=== PATIENT | female | born 2005 | race Caucasian/White ===

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

== ENCOUNTER 2025-01-06 12:53 | Emergency (ER) | payer OTHER, SELFPAY ==
[2025-01-06] MEDS ORDERED: ACETAMINOPHEN 500 MG TAB ONE (13:14)
[2025-01-06 13:49] LABS: Influenza A Ag Negative; Influenza B Ag Negative; SARS-CoV-2 Antigen Rapid Res Negative (Negative)
--- NOTE | 2025-01-06 14:23 | EDPHYS ---
Physician Documentation [facility] Name: Kika Castañeda Age: 19 yrs Sex: Female : 2005 Arrival Date: 01/06/2025 Time: 12:53 Bed IW1 Private MD: ED Physician Aniket Zamora HPI: 01/06 14:26 This 19 yrs old Female presents to ER via Ambulatory with complaints of Ear Pain, ms3 Headache. 14:26 19-year-old female with past medical history of depression, DVT, necrotizing ms3 pancreatitis presents to the emergency department for bilateral ear pain and headache that has been ongoing for 2 days. Patient endorses cough, nasal congestion. She denies contact with sick contacts.. Historical: - Allergies: 13:13 No Known Allergies; cm10 - PMHx: 13:13 depressive disorder; Hx of DVT; necrotizing pancreatitis; cm10 - PSHx: 13:13 Biliary stents; Cholecystectomy; neck; tracheotomy; cm10 - Immunization history:: Adult Immunizations up to date. - Infectious Disease History:: Denies. - Social history:: Smoking status: Patient denies any tobacco usage or history of. ROS: 14:26 Constitutional: Negative for fever, and chills. Cardiovascular: Negative for chest ms3 pain, and palpitations. Respiratory: Negative for shortness of breath, cough, wheezing, and pleuritic chest pain, Abdomen/GI: Negative for abdominal pain, nausea, vomiting, diarrhea, and constipation, 14:26 ENT: Positive for ear pain, nasal discharge, rhinorrhea, Exam: 14:26 Constitutional: This is a well developed, well nourished patient who is awake, alert, ms3 and in no acute distress. Cardiovascular: Regular rate and rhythm with a normal S1 and S2. No gallops, murmurs, or rubs. Normal PMI, no JVD. No pulse deficits. Respiratory: Lungs have equal breath sounds bilaterally, clear to auscultation and percussion. No rales, rhonchi or wheezes noted. No increased work of breathing, no retractions or nasal flaring. Abdomen/GI: Soft, non-tender, with normal bowel sounds. No distension or tympany. No guarding or rebound. No evidence of tenderness throughout. 14:26 ENT: External ear(s): are unremarkable, Ear canal(s): cerumen impaction, that is moderate, bilaterally, Vital Signs: 13:13 BP 128 / 94; Pulse 98; Resp 15; Temp 98; Pulse Ox 96% ; Weight 95.25 kg; Height 5 ft. 4 cm10 in. ; Pain 8/10; 13:13 Body Mass Index 36.05 (95.25 kg, 162.56 cm) - Percentile 97.4 % cm10 13:13 Pain Scale: Adult cm10 MDM: 13:22 Medical Screening Exam initiated ms3 14:26 Differential diagnosis: otitis media, cerumen impaction, Influenza vs COVID. Data ms3 reviewed: vital signs, nurses notes, and as a result, I will discharge patient. I considered the following discharge prescriptions or medication management in the emergency department Medications were administered in the Emergency Department. See MAR. Counseling: I had a detailed discussion with the patient and/or guardian regarding the historical points, exam findings, and any diagnostic results supporting the discharge/admit diagnosis, lab results, the need for outpatient follow up, to return to the emergency department if symptoms worsen or persist or if there are any questions or concerns that arise at home. Special discussion: I discussed with the patient/guardian in detail that at this point there is no indication for admission to the hospital. It is understood, however, that if the symptoms persist or worsen the patient needs to return immediately for re-evaluation. ED course: Discussed negative flu and COVID with patient. Patient to follow-up with primary care physician in 2 to 3 days. Discussed Debrox with patient. All questions were answered. Return precautions discussed include worsening symptoms, or any other concerns.. 01/06 13:18 Order name: COVID-19 Ag + Flu A+B Ag; Complete Time: 14:22 cm10 Administered Medications: 13:22 Drug: Acetaminophen PO 1000 mg PO once Route: PO; cm10 13:30 Follow up: Response: No adverse reaction iw 13:22 Not Given (Duplicate Order): [id number] mg PO once cm10 Disposition Summary: 01/06/25 14:23 Discharge Ordered Notes: Location: Home ms3 Condition: Stable ms3 Diagnosis - Acute upper respiratory infection, unspecified ms3 Followup: ms3 - With: Tommie Jones, DO - When: 2 - 3 days - Reason: Recheck today's complaints Discharge Instructions: - Discharge Summary Sheet ms3 - Upper Respiratory Infection, Adult ms3 Forms: - Work release form iw - Medication Reconciliation Form ms3 - Antibiotic Education ms3 - Prescription Opioid Use ms3 - Patient Portal Instructions ms3 - Leadership Thank You Letter ms3 Prescriptions: - Claritin 10 mg Oral Tablet - take 1 tablet ORAL route once daily As needed; 30 tablet; Refills: 0, Product ms3 Selection Permitted Signatures: Dispatcher [employer] EDAniket Artis, DO ms3 Roxana Guidry RN RN cm10 Tiana Almodovar RN iw
--- NOTE | 2025-01-06 14:23 | ER ---
Nurse's Notes [facility] Name: Kika Castañeda Age: 19 yrs Sex: Female : 2005 Arrival Date: 01/06/2025 Time: 12:53 Bed IW1 Private MD: Diagnosis: Acute upper respiratory infection, unspecified Presentation: 01/06 13:13 Chief complaint: Patient states: Bilateral ear pain and headache onset 2 days ago. cm10 Coronavirus screen: Client denies travel out of the [place] in the last 14 days. Ebola Screen: Patient denies travel to an Ebola-affected area in the 21 days before illness onset. Initial Sepsis Screen: Does the patient meet any 2 criteria? HR > 90 bpm. Does the patient have a suspected source of infection? No. Patient's initial sepsis screen is negative. Risk Assessment: Do you want to hurt yourself or someone else? Patient reports no desire to harm self or others. Onset of symptoms was January 04, 2025. 13:13 Method Of Arrival: Ambulatory cm10 13:13 Acuity: ARA 4 cm10 Triage Assessment: 13:14 General: Appears in no apparent distress. comfortable, Behavior is calm, cooperative. cm10 Pain: Complains of pain in head, right ear and left ear. EENT: Reports pain in right ear and left ear. Neuro: No deficits noted. Level of Consciousness is awake, alert, obeys commands, Oriented to person, place, time, situation, Appropriate for age. Respiratory: No deficits noted. Airway is patent Respiratory effort is even, unlabored, Respiratory pattern is regular, symmetrical. Historical: - Allergies: 13:13 No Known Allergies; cm10 - PMHx: 13:13 depressive disorder; Hx of DVT; necrotizing pancreatitis; cm10 - PSHx: 13:13 Biliary stents; Cholecystectomy; neck; tracheotomy; cm10 - Immunization history:: Adult Immunizations up to date. - Infectious Disease History:: Denies. - Social history:: Smoking status: Patient denies any tobacco usage or history of. Vital Signs: 13:13 BP 128 / 94; Pulse 98; Resp 15; Temp 98; Pulse Ox 96% ; Weight 95.25 kg; Height 5 ft. 4 cm10 in. ; Pain 8/10; 13:13 Body Mass Index 36.05 (95.25 kg, 162.56 cm) - Percentile 97.4 % cm10 13:13 Pain Scale: Adult cm10 ED Course: 12:58 Patient arrived in ED. al6 13:03 Aniket Zamora DO is Attending Physician. ms3 13:14 Triage completed. cm10 13:15 Arm band placed on right wrist. Patient placed in an exam room, on a stretcher. cm10 13:22 COVID-19 Ag + Flu A+B Ag Sent. cm10 13:22 COVID swab sent to lab. cm10 14:22 Tommie Jones DO is Referral Physician. ms3 14:47 Tiana Almodovar, RN is Primary Nurse. iw Administered Medications: 13:22 Drug: Acetaminophen PO 1000 mg PO once Route: PO; cm10 13:30 Follow up: Response: No adverse reaction iw 13:22 Not Given (Duplicate Order): [id number] mg PO once cm10 Outcome: 14:23 Discharge ordered by MD. ms3 14:47 Patient left the ED. iw Signatures: Tiana Almodovar, RN RN iw Aniket Zamora DO DO ms3 Roxana Guidry RN RN cm10 Debra Marino al6
[2025-01-06 21:26] VITALS: BP 128/94; TEMP 98; O2SAT 96
== END 2025-01-06 14:47 | disposition home or self-care (01) ==
LOC: ER 12:53
DX: J06.9 Acute upper respiratory infection, unspecified (principal); Z11.52 Encounter for screening for COVID-19
CPT/HCPCS: 36415; 87428

== ENCOUNTER 2025-01-14 01:22 | Emergency (ER) | payer SELFPAY ==
--- NOTE | 2025-01-14 02:29 | EDPHYS ---
Physician Documentation [facility] Name: Kika Castañeda Age: 19 yrs Sex: Female : 2005 Arrival Date: 01/14/2025 Time: 01:22 Bed DX4 Private MD: ED Physician lAlie Almodovar HPI: 01/14 01:48 This 19 yrs old Female presents to ER via Unassigned with complaints of sw6 Cough, Congestion, Ear Pain. 01:48 The patient or guardian reports cough, hoarse voice, Sore throat. Onset: The sw6 symptoms/episode began/occurred 2 day(s) ago. Severity of symptoms: At their worst the symptoms were moderate, in the emergency department the symptoms are unchanged. Modifying factors: The symptoms are alleviated by nothing, the symptoms are aggravated by talking. Associated signs and symptoms: Pertinent negatives: ear ache, fever, rhinorrhea. The patient presents from home for evaluation for sore throat as well as a dry cough for the past 2 days. No fevers. 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 She used some Tylenol for her pain yesterday and reports it did not help. No medication taken today. She does not smoke. No history of asthma. She has had a previous tracheostomy due to complication from pancreatitis in the past. No ear pain. Here for evaluation.. Historical: - Allergies: 01:49 No Known Allergies; kl - PMHx: 01:49 depressive disorder; Hx of DVT; necrotizing pancreatitis; kl - PSHx: 01:49 Biliary stents; neck; tracheotomy; Cholecystectomy; kl - Immunization history:: Adult Immunizations not immunized. - Infectious Disease History:: Denies. - Social history:: Smoking status: Patient denies any tobacco usage or history of. ROS: 01:48 Constitutional: Negative for fever, chills, and weight loss, Cardiovascular: Negative sw6 for chest pain, palpitations, and edema, Respiratory: Negative for shortness of breath, cough, wheezing, and pleuritic chest pain, Abdomen/GI: Negative for abdominal pain, nausea, vomiting, diarrhea, and constipation, 01:48 ENT: Positive for sore throat, Negative for ear pain, nasal discharge, 01:48 All other systems are negative, Exam: 01:48 Constitutional: This is a well developed, well nourished patient who is awake, alert, sw6 and in no acute distress. Cardiovascular: Regular rate and rhythm with a normal S1 and S2. No gallops, murmurs, or rubs. Normal PMI, no JVD. No pulse deficits. Respiratory: Lungs have equal breath sounds bilaterally, clear to auscultation and percussion. No rales, rhonchi or wheezes noted. No increased work of breathing, no retractions or nasal flaring. Abdomen/GI: Soft, non-tender, with normal bowel sounds. No distension or tympany. No guarding or rebound. No evidence of tenderness throughout. Skin: Warm, dry with normal turgor. Normal color with no rashes, no lesions, and no evidence of cellulitis. Psych: Awake, alert, with orientation to person, place and time. Behavior, mood, and affect are within normal limits. 01:48 ENT: Posterior pharynx: Airway: normal, Uvula: normal, midline, swelling, erythema, exudate, is not appreciated, peritonsillar mass, is not appreciated, pooling of secretions, is not appreciated, Voice: is normal, Vital Signs: 01:46 BP 139 / 86; Pulse 87; Resp 16; Temp 98.3(O); Pulse Ox 97% on R/A; Weight 99.79 kg (R); kl Height 5 ft. 4 in. ; Pain 8/10; 01:46 Body Mass Index 37.76 (99.79 kg, 162.56 cm) - Percentile 97.9 % kl 01:46 Pain Scale: Adult kl MDM: 01:28 Medical Screening Exam initiated 01:48 Differential Diagnosis: Upper Respiratory Infection Pharyngitis Viral Syndrome Other sw6 Strep throat. Data reviewed: vital signs, nurses notes. 02:28 Data reviewed: lab test result(s). ED course: The patient is doing well here. Her rapid sw6 strep test is negative. Recommend she is [id number] Cepacol lozenges as needed for her throat pain. She remained stable here in the ER and is okay for discharge home.. 01/14 01:48 Order name: Throat Culture 6 01/14 02:03 Order name: Group A Streptococcus Rapid; Complete Time: :27 6 01/14 02:27 Interpretation: Within normal limits. sw6 Administered Medications: No medications were administered Disposition Summary: 01/14/25 02:28 Discharge Ordered Notes: Location: Home sw6 Problem: new sw6 Symptoms: are unchanged sw6 Condition: Stable sw6 Diagnosis - Acute pharyngitis, unspecified sw6 Discharge Instructions: - Discharge Summary Sheet sw6 - Strep Throat, Adult sw6 - Pharyngitis, [id number] sw6 Forms: - Medication Reconciliation Form sw6 - Antibiotic Education sw6 - Prescription Opioid Use sw6 - Patient Portal Instructions 6 - Leadership Thank You Letter 6 Signatures: Dispatcher [employer] Isaura Sauceda, TRAE RN Allie Agosto MD MD sw6
--- NOTE | 2025-01-14 02:29 | ER ---
Nurse's Notes [facility] Name: Kika Castañeda Age: 19 yrs Sex: Female : 2005 Arrival Date: 01/14/2025 Time: 01:22 Bed DX4 Private MD: Diagnosis: Acute pharyngitis, unspecified Presentation: 01/14 01:46 Chief complaint: Patient states: sore throat ear pain since last week cough and kl congestion. Coronavirus screen: Vaccine status: Patient reports being unvaccinated. Ebola Screen: Patient negative for fever greater than or equal to 101.5 degrees Fahrenheit, and additional compatible Ebola Virus Disease symptoms. Initial Sepsis Screen: Does the patient meet any 2 criteria? No. Patient's initial sepsis screen is negative. Does the patient have a suspected source of infection?. Risk Assessment: Do you want to hurt yourself or someone else? Patient reports no desire to harm self or others. 01:46 Method Of Arrival: Ambulatory kl 01:46 Acuity: RAA 4 kl Triage Assessment: 01:49 General: Appears uncomfortable, Behavior is calm, cooperative. Pain: Complains of pain kl in throat and bilateral ears. Respiratory: No deficits noted. Breath sounds are clear bilaterally. Historical: - Allergies: 01:49 No Known Allergies; kl - PMHx: 01:49 depressive disorder; Hx of DVT; necrotizing pancreatitis; kl - PSHx: 01:49 Biliary stents; neck; tracheotomy; Cholecystectomy; kl - Immunization history:: Adult Immunizations not immunized. - Infectious Disease History:: Denies. - Social history:: Smoking status: Patient denies any tobacco usage or history of. Screenin:10 [facility] ED Fall Risk Assessment (Adult) History of falling in the last 3 months, vc1 including since admission No falls in past 3 months (0 pts) Confusion or Disorientation No (0 pts) Intoxicated or Sedated No (0 pts). Abuse screen: Denies threats or abuse. Nutritional screening: No deficits noted. Tuberculosis screening: No symptoms or risk factors identified. 03:25 [facility] ED Fall Risk Assessment (Adult) Impaired Gait No (0 pts) Mobility Assist vc1 Device Used No (0 pt) Altered Elimination No (0 pt) Score/Fall Risk Level 0 - 2 = Low Risk Oriented to surroundings, Maintained a safe environment, Educated pt \T\ family on fall prevention, incl call for assistance when getting out of bed. Vital Signs: 01:46 BP 139 / 86; Pulse 87; Resp 16; Temp 98.3(O); Pulse Ox 97% on R/A; Weight 99.79 kg (R); kl Height 5 ft. 4 in. ; Pain 8/10; 01:46 Body Mass Index 37.76 (99.79 kg, 162.56 cm) - Percentile 97.9 % 01:46 Pain Scale: Adult ED Course: 01:25 Patient arrived in ED. 2 01:28 Allie Almodovar MD is Attending Physician. 6 01:49 Triage completed. 02:00 Arm band placed on right wrist. vc1 03:10 Che Reveles RN is Primary Nurse. vc1 03:26 Patient has correct armband on for positive identification. treated in diagnostic vc1 chair. Provided Education on: cepacol lozenges. 03:26 No provider procedures requiring assistance completed. Patient did not have IV access vc1 during this emergency room visit. Administered Medications: No medications were administered Medication: 03:26 VIS not applicable for this client. vc1 Outcome: 02:28 Discharge ordered by . 6 03:26 Discharged to home ambulatory, vc1 03:26 Condition: stable 03:26 Discharge instructions given to patient, Instructed on discharge instructions, follow up and referral plans. Demonstrated understanding of instructions, follow-up care, 03:27 Patient left the ED. vc1 Signatures: Isaura Dias RN RN Che Reveles RN RN [facility] Allie Almodovar MD MD sw6
[2025-01-14 03:32] VITALS: BP 139/86; TEMP 98.3; O2SAT 97
== END 2025-01-14 03:27 | disposition home or self-care (01) ==
LOC: ER 01:22
DX: J02.9 Acute pharyngitis, unspecified (principal); R05.9 Cough, unspecified
CPT/HCPCS: 36415; 87070; 99282

== ENCOUNTER 2025-02-25 03:47 | Emergency (ER) | payer SELFPAY ==
[2025-02-25 04:31] LABS: Specific Gravity 1.018 (1.005-1.030)
[2025-02-25] MEDS ORDERED: ACETAMINOPHEN 500 MG TAB ONE (04:34)
[2025-02-25] MEDS ORDERED: IBUPROFEN 400 MG TAB ONE (04:34)
[2025-02-25] MEDS ORDERED: DOXYCYCLINE 100 MG CAP PO ONE (04:34)
--- NOTE | 2025-02-25 04:50 | EDPHYS ---
Physician Documentation [facility] Name: Kika Castañeda Age: 20 yrs Sex: Female : 2005 Arrival Date: 02/25/2025 Time: 03:47 Bed 15 Private MD: ED Physician Melo Gordon HPI: 02/25 03:56 This 20 yrs old Other Race Female presents to ER via Unassigned with complaints of sp4 Facial Swelling, Headache. 04:10 20-year-old female presents with diffuse facial redness and acne. Also reporting nodule sp4 forming to the middle of the forehead.. 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 Flu vaccine is not up to date. - Infectious Disease History:: Denies. - Social history:: Smoking status: Patient denies any tobacco usage or history of. Patient uses street drugs, marijuana. - Family history:: not pertinent. ROS: 04:10 Constitutional: Negative for fever, chills, and weight loss, positive facial redness, sp4 positive facial acne, positive forehead nodule 04:10 All other systems are negative, Exam: 04:10 Constitutional: This is a well developed, well nourished patient who is awake, alert, sp4 and in no acute distress. Head/Face: Normocephalic, diffuse moderate facial acne, also mild swelling to the middle of the forehead without significant infection. , Diffuse facial redness secondary to copious acne Eyes: Pupils equal round and reactive to light, extra-ocular motions intact. Lids and lashes normal. Conjunctiva and sclera are not injected. Cornea within normal limits. Periorbital areas with no swelling, redness, or edema. ENT: Nares patent. No nasal discharge, no septal abnormalities noted. Tympanic membranes are normal and external auditory canals are clear. Oropharynx with no redness, swelling, or masses, exudates, or evidence of obstruction, uvula midline. Mucous membranes moist. Neck: Trachea midline, no thyromegaly or masses palpated, and no cervical lymphadenopathy. Supple, full range of motion without nuchal rigidity, or vertebral point tenderness. Chest/axilla: Normal chest wall appearance and motion. Nontender with no deformity. No lesions are appreciated. Cardiovascular: Regular rate and rhythm with a normal S1 and S2. No gallops, murmurs, or rubs. Normal PMI, no JVD. No pulse deficits. Respiratory: Lungs have equal breath sounds bilaterally, clear to auscultation and percussion. No rales, rhonchi or wheezes noted. No increased work of breathing, no retractions or nasal flaring. Abdomen/GI: Soft, with normal bowel sounds. No distension or tympany. No guarding or rebound. No evidence of tenderness throughout. Back: No spinal tenderness. No costovertebral tenderness. Skin: Warm, dry with normal turgor. Normal color with no rashes, no lesions, and no evidence of cellulitis. MS/ Extremity: Pulses equal, no cyanosis. Neurovascular intact. Full, normal range of motion. Neuro: Awake and alert, GCS 15, oriented to person, place, time, and situation. Cranial nerves II-XII grossly intact. Motor strength 5/5 in all extremities. Sensory grossly intact. Psych: Awake, alert, with orientation to person, place and time. Behavior, mood, and affect are within normal limits Vital Signs: 04:02 BP 138 / 94; Pulse 82; Resp 16; Temp 97.3; Pulse Ox 100% ; Weight 99.79 kg; Height 5 vc1 ft. 4 in. ; Pain 5/10; 04:54 BP 128 / 78; Pulse 80; Resp 18; Temp 97.3; Pulse Ox 100% ; Pain 0/10; bm8 04:02 Body Mass Index 37.76 (99.79 kg, 162.56 cm) - Percentile 97.9 % vc1 04:02 Pain Scale: Adult vc1 04:54 Pain Scale: Adult bm8 [place] Coma Score: 04:10 Eye Response: spontaneous(4). Motor Response: obeys commands(6). Verbal Response: bm8 oriented(5). Total: 15. 04:10 Eye Response: spontaneous(4). Motor Response: obeys commands(6). Verbal Response: sp4 oriented(5). Total: 15. 04:12 Eye Response: spontaneous(4). Motor Response: obeys commands(6). Verbal Response: sp4 oriented(5). Total: 15. 04:54 Eye Response: spontaneous(4). Motor Response: obeys commands(6). Verbal Response: bm8 oriented(5). Total: 15. MDM: 04:04 Medical Screening Exam initiated sp4 04:12 Differential diagnosis: cluster headache, migraine, tension headache, uremia. Data sp4 reviewed: vital signs, nurses notes, old medical records, lab test result(s), UPT: negative. 02/25 04:02 Order name: Test, Urine; Complete Time: 04:45 sp4 Administered Medications: 04:36 Drug: Doxycycline PO 100 mg PO once Route: PO; bm8 04:56 Follow up: Response: No adverse reaction bm8 04:36 Drug: Ibuprofen PO 800 mg PO once Route: PO; bm8 04:56 Follow up: Response: No adverse reaction bm8 04:36 Drug: Acetaminophen PO 1000 mg PO once Route: PO; bm8 04:56 Follow up: Response: No adverse reaction bm8 Disposition Summary: 02/25/25 04:49 Discharge Ordered Notes: Location: Home sp4 Problem: new sp4 Symptoms: have improved sp4 Condition: Stable sp4 Diagnosis - Nodulocystic acne, infected sebaceous cyst, Forehead nodule sp4 Followup: sp4 - With: Private Physician - When: 7 - 10 days - Reason: Recheck today's complaints Discharge Instructions: - Discharge Summary Sheet sp4 - Acne, [id number] sp4 Forms: - Patient Portal Instructions sp4 Prescriptions: - Ibuprofen 800 mg Oral Tablet - take 1 tablet ORAL route every 8 hours As needed take with food; 30 tablet; sp4 Refills: 0, Product Selection Permitted - Doxycycline Monohydrate 100 mg Oral tablet - take 1 tablet ORAL route every 12 hours for 14 days; 28 tablet; Refills: 0, sp4 Product Selection Permitted Signatures: Dispatcher [employer] EDMS Che Reveles RN RN vc1 Melo Gordon MD MD sp4 Elie Evans RN RN bm8 Corrections: (The following items were deleted from the chart) 04:03 04:03 Test, Urine+[id number].LAB.BRZ ordered. EDMS EDMS
--- NOTE | 2025-02-25 04:50 | ER ---
Nurse's Notes [facility] Name: Kika Castañeda Age: 20 yrs Sex: Female : 2005 Arrival Date: 02/25/2025 Time: 03:47 Bed 15 Private MD: Diagnosis: Nodulocystic acne, infected sebaceous cyst, Forehead nodule Presentation: 02/25 04:02 Chief complaint: Patient states: swollen face, knot on forehead with pressure radiating vc1 behind eyes. Coronavirus screen: Client denies travel out of the [place] in the last 14 days. At this time, the client does not indicate any symptoms associated with coronavirus-19. Ebola Screen: Patient negative for fever greater than or equal to 101.5 degrees Fahrenheit, and additional compatible Ebola Virus Disease symptoms Patient denies exposure to infectious person. Patient denies travel to an Ebola-affected area in the 21 days before illness onset. No symptoms or risks identified at this time. Initial Sepsis Screen: Does the patient meet any 2 criteria? No. Patient's initial sepsis screen is negative. Does the patient have a suspected source of infection? No. Patient's initial sepsis screen is negative. Risk Assessment: Do you want to hurt yourself or someone else? Patient reports no desire to harm self or others. Onset of symptoms was February 25, 2025. 04:02 Method Of Arrival: Ambulatory vc1 04:02 Acuity: ARA 4 vc1 Triage Assessment: 04:08 Headache History: The patient has had previous headaches and this one is similar to bm8 previous episodes. General: Appears in no apparent distress. comfortable, Behavior is calm, cooperative, appropriate for age. Pain: Complains of pain in face Pain currently is 4 out of 10 on a pain scale. Pain began 1 day ago. Also complains of no other associated symptoms. EENT: No deficits noted. No signs and/or symptoms were reported regarding the EENT system. Neuro: No deficits noted. Level of Consciousness is awake, alert, obeys commands, Oriented to person, place, time, situation, Appropriate for age Reports headache frontal area. Cardiovascular: Capillary refill < 3 seconds in bilateral fingers Patient's skin is warm and dry. Respiratory: Airway is patent Respiratory effort is even, unlabored, Respiratory pattern is regular, symmetrical. Derm: pt has small cyst at hairline on left side of face. Reports pain that is 4 out of 10 on a pain scale. 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 Flu vaccine is not up to date. - Infectious Disease History:: Denies. - Social history:: Smoking status: Patient denies any tobacco usage or history of. Patient uses street drugs, marijuana. - Family history:: not pertinent. Screenin:08 [facility] ED Fall Risk Assessment (Adult) History of falling in the last 3 months, vc1 including since admission No falls in past 3 months (0 pts) Confusion or Disorientation No (0 pts) Intoxicated or Sedated No (0 pts) Impaired Gait No (0 pts) Mobility Assist Device Used No (0 pt) Altered Elimination No (0 pt) Score/Fall Risk Level 0 - 2 = Low Risk Oriented to surroundings, Maintained a safe environment, Educated pt \T\ family on fall prevention, incl call for assistance when getting out of bed, Provided non-skid footwear, Hourly rounding (assess needs \T\ fall precautionary measures) done. Abuse screen: Denies threats or abuse. Nutritional screening: No deficits noted. Tuberculosis screening: No symptoms or risk factors identified. Assessment: 04:54 Reassessment: Patient appears in no apparent distress at this time. Patient and/or bm8 family updated on plan of care and expected duration. Pain level reassessed. Patient is alert, oriented x 3, equal unlabored respirations, skin warm/dry/pink. Patient denies pain at this time. Patient states feeling better. Patient states symptoms have improved. Pain: Denies pain. Vital Signs: 04:02 BP 138 / 94; Pulse 82; Resp 16; Temp 97.3; Pulse Ox 100% ; Weight 99.79 kg; Height 5 vc1 ft. 4 in. ; Pain 5/10; 04:54 BP 128 / 78; Pulse 80; Resp 18; Temp 97.3; Pulse Ox 100% ; Pain 0/10; bm8 04:02 Body Mass Index 37.76 (99.79 kg, 162.56 cm) - Percentile 97.9 % vc1 04:02 Pain Scale: Adult vc1 04:54 Pain Scale: Adult bm8 [place] Coma Score: 04:10 Eye Response: spontaneous(4). Motor Response: obeys commands(6). Verbal Response: bm8 oriented(5). Total: 15. 04:10 Eye Response: spontaneous(4). Motor Response: obeys commands(6). Verbal Response: sp4 oriented(5). Total: 15. 04:12 Eye Response: spontaneous(4). Motor Response: obeys commands(6). Verbal Response: sp4 oriented(5). Total: 15. 04:54 Eye Response: spontaneous(4). Motor Response: obeys commands(6). Verbal Response: bm8 oriented(5). Total: 15. ED Course: 03:51 Patient arrived in ED. gm2 03:56 Melo Gordon MD is Attending Physician. sp4 04:03 Elie Evans, RN is Primary Nurse. bm8 04:07 Triage completed. vc1 04:08 Arm band placed on right wrist. vc1 04:09 Patient has correct armband on for positive identification. Bed in low position. Call vc1 light in reach. Provided Education on: Plan of care. Pulse ox on. NIBP on. 04:10 No provider procedures requiring assistance completed. Patient did not have IV access bm8 during this emergency room visit. Administered Medications: 04:36 Drug: Doxycycline PO 100 mg PO once Route: PO; bm8 04:56 Follow up: Response: No adverse reaction bm8 04:36 Drug: Ibuprofen PO 800 mg PO once Route: PO; bm8 04:56 Follow up: Response: No adverse reaction bm8 04:36 Drug: Acetaminophen PO 1000 mg PO once Route: PO; bm8 04:56 Follow up: Response: No adverse reaction bm8 Medication: 04:10 VIS not applicable for this client. bm8 Outcome: 04:49 Discharge ordered by . sp4 04:54 Discharged to home ambulatory, bm8 04:54 Condition: stable 04:54 Discharge instructions given to patient, family, Instructed on discharge instructions, follow up and referral plans. no drinking with medication, no driving heavy equipment, medication usage, safety practices, Demonstrated understanding of instructions, follow-up care, medications, 05:01 Patient left the ED. bm8 Signatures: Che Reveles RN RN vc1 Melo Gordon MD MD sp4 Roxana Sweeney gm2 Elie Evans RN RN bm8
[2025-02-25 05:08] VITALS: TEMP 97.3; O2SAT 100
[2025-02-25 05:10] VITALS: BP 128/78
== END 2025-02-25 05:01 | disposition home or self-care (01) ==
LOC: ER 03:47
DX: L70.3 Acne tropica (principal); L72.3 Sebaceous cyst
CPT/HCPCS: 81025; 99283

== ENCOUNTER 2025-03-07 00:44 | Emergency (ER) | payer SELFPAY ==
--- NOTE | 2025-03-07 01:47 | ER ---
Nurse's Notes [facility] Name: Kika Castañeda Age: 20 yrs Sex: Female : 2005 Arrival Date: 03/07/2025 Time: 00:44 Bed 12 Private MD: Diagnosis: Rash and other nonspecific skin eruption;Chest pain, unspecified Presentation: 03/07 01:00 Chief complaint: Patient states: BUMP TO LEFT OF FOREHEAD INTERMITTENT FOR 2 MONTHS ., br2 INTERMITTENT CP. Coronavirus screen: Client denies travel out of the [place] in the last 14 days. Ebola Screen: Patient denies exposure to infectious person. Initial Sepsis Screen: Does the patient meet any 2 criteria? No. Patient's initial sepsis screen is negative. Does the patient have a suspected source of infection? No. Patient's initial sepsis screen is negative. Risk Assessment: Do you want to hurt yourself or someone else? Patient reports no desire to harm self or others. Onset of symptoms was December 08, 2024. 01:00 Method Of Arrival: Ambulatory br2 01:00 Acuity: ARA 3 br2 Triage Assessment: 01:03 General: Appears in no apparent distress. comfortable, Behavior is calm, cooperative. br2 Pain: Complains of pain in forehead. 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 - Infectious Disease History:: Denies. - Social history:: Smoking status: Reported history of juuling and/or vaping. Patient denies any tobacco usage or history of. Patient uses alcohol, but reports only rare drinking. street drugs, marijuana. - Family history:: not pertinent. Screenin:00 [facility] ED Fall Risk Assessment (Adult) History of falling in the last 3 months, br2 including since admission No falls in past 3 months (0 pts) Confusion or Disorientation No (0 pts) Intoxicated or Sedated No (0 pts) Impaired Gait No (0 pts) Mobility Assist Device Used No (0 pt) Altered Elimination No (0 pt) Score/Fall Risk Level 0 - 2 = Low Risk Oriented to surroundings. Abuse screen: Denies threats or abuse. Denies injuries from another. Nutritional screening: No deficits noted. Tuberculosis screening: No symptoms or risk factors identified. Assessment: 01:00 Reassessment: SEE TRIAGE ASSESSMENT. br2 01:00 Cardiovascular: Capillary refill < 3 seconds Chest pain is denied INTERMITTENT, DENIES br2 PAIN AT THIS TIME. Vital Signs: 01:00 BP 146 / 102; Pulse 114; Resp 18; Temp 97.2(TE); Pulse Ox 99% on R/A; Weight 99.79 kg; br2 Height 5 ft. 4 in. ; Pain 6/10; 01:00 Body Mass Index 37.76 (99.79 kg, 162.56 cm) - Percentile 97.9 % br2 01:00 Pain Scale: Adult br2 ED Course: 00:47 Patient arrived in ED. mr 00:47 Gregory Sims MD is Attending Physician. rt 01:00 Patient has correct armband on for positive identification. Bed in low position. Call br2 light in reach. Side rails up X 1. Provided Education on: PLAN OF CARE. Client placed on continuous cardiac and pulse oximetry monitoring. NIBP monitoring applied. pool table operator on. 01:03 Triage completed. br2 01:03 Arm band placed on right wrist. br2 02:07 No provider procedures requiring assistance completed. Patient did not have IV access br2 during this emergency room visit. Patient maintains SpO2 saturation greater than 95% on room air. 02:37 Kelsea Cowan, RN is Primary Nurse. br2 Administered Medications: No medications were administered Medication: 01:00 VIS not applicable for this client. br2 Outcome: :47 Discharge ordered by . rt 02:07 Discharged to home ambulatory, br2 02:07 Condition: stable 02:07 Discharge instructions given to patient, Instructed on discharge instructions, follow up and referral plans. Demonstrated understanding of instructions, follow-up care, 02:55 Patient left the ED. br2 Signatures: Viki Bundy, Reg Reg Gregory iSms MD MD rt Kelsea Cowan, RN RN br2 Corrections: (The following items were deleted from the chart) 02:40 02:38 Cardiovascular: Capillary refill < 3 seconds Chest pain is denied INTERMITTENT, br2 DENIES PAIN AT THIS TIME. br2
--- NOTE | 2025-03-07 01:48 | EDPHYS ---
Physician Documentation [facility] Name: Kika Castañeda Age: 20 yrs Sex: Female : 2005 Arrival Date: 03/07/2025 Time: 00:44 Bed 12 Private MD: ED Physician Gregory Sims HPI: 03/07 02:45 This 20 yrs old Female presents to ER via Ambulatory with complaints of Chest Pain, rt Facial problem. 02:45 Patient presents to the ED with intermittent chest pain for some time, no chest pain rt currently, states that this is not a primary concern. Reports having a bump to her forehead that has also been intermittent for the past 2 months. Is currently on doxycycline which was prescribed here about a week ago. Has not followed up. Denies other acute complaints, symptoms are mild in severity, no other aggravating or alleviating factors.. 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 - Infectious Disease History:: Denies. - Social history:: Smoking status: Reported history of juuling and/or vaping. Patient denies any tobacco usage or history of. Patient uses alcohol, but reports only rare drinking. street drugs, marijuana. - Family history:: not pertinent. ROS: 02:45 Constitutional: Negative for fever, chills, and weight loss, Respiratory: Negative for rt shortness of breath, cough, wheezing, and pleuritic chest pain, Abdomen/GI: Negative for abdominal pain, nausea, vomiting, diarrhea, and constipation, 02:45 Cardiovascular: Positive for chest pain, Negative for edema, 02:45 Skin: Positive for Acne, swelling, Exam: 02:45 Constitutional: This is a well developed, well nourished patient who is awake, alert, rt and in no acute distress. Chest/axilla: Normal chest wall appearance and motion. Nontender with no deformity. No lesions are appreciated. Cardiovascular: Regular rate and rhythm with a normal S1 and S2. No gallops, murmurs, or rubs. Normal PMI, no JVD. No pulse deficits. Respiratory: Lungs have equal breath sounds bilaterally, clear to auscultation and percussion. No rales, rhonchi or wheezes noted. No increased work of breathing, no retractions or nasal flaring. Abdomen/GI: Soft, non-tender, with normal bowel sounds. No distension or tympany. No guarding or rebound. No evidence of tenderness throughout. 02:45 Head/face: At the primary area of concern, there is an acne pustular with mild surrounding erythema, no induration, swelling appreciated underneath the skin.. Vital Signs: 01:00 BP 146 / 102; Pulse 114; Resp 18; Temp 97.2(TE); Pulse Ox 99% on R/A; Weight 99.79 kg; br2 Height 5 ft. 4 in. ; Pain 6/10; 01:00 Body Mass Index 37.76 (99.79 kg, 162.56 cm) - Percentile 97.9 % br2 01:00 Pain Scale: Adult br2 MDM: 01:39 Medical Screening Exam initiated rt 02:45 Differential diagnosis: Acne, localized reaction. Data reviewed: vital signs, nurses rt notes. Test considered but Not performed: Other Details Patient has no chest pain, unremarkable EKG, very low suspicion for acute coronary syndrome, labs, x-ray is not indicated. Counseling: I had a detailed discussion with the patient and/or guardian regarding the historical points, exam findings, and any diagnostic results supporting the discharge/admit diagnosis, the need for outpatient follow up. ED course: Symptoms have been present for more than 1 month. Patient has not followed up in the clinic. At this time, I see no emergent condition, suspect that the area of swelling per patient report is most likely a secondary effect from the acne that is present, I instructed patient to establish care with and follow-up with her primary care provider for further management of chronic issues.. 03/07 01:15 Order name: EKG - Nurse/Tech; Complete Time: 01:15 br2 Administered Medications: No medications were administered Disposition Summary: 03/07/25 01:47 Discharge Ordered Notes: Location: Home rt Problem: an ongoing problem rt Symptoms: are unchanged rt Condition: Stable rt Diagnosis - Rash and other nonspecific skin eruption rt - Chest pain, unspecified rt Followup: rt - With: Private Physician - When: 2 - 3 days - Reason: Discharge Instructions: - Discharge Summary Sheet rt - Nonspecific Chest Pain, Adult rt - Rash, Adult rt Forms: - Medication Reconciliation Form rt - Antibiotic Education rt - Prescription Opioid Use rt - Patient Portal Instructions rt - Leadership Thank You Letter rt Signatures: Gregory Sims MD MD rt Kelsea Cowan, RN RN br2
[2025-03-07 03:01] VITALS: BP 146/102; TEMP 97.2; O2SAT 99
== END 2025-03-07 02:55 | disposition home or self-care (01) ==
LOC: ER 00:44
DX: R21 Rash and other nonspecific skin eruption (principal); R07.9 Chest pain, unspecified
CPT/HCPCS: 93005; 99284